=== PATIENT | female | born 1960 | race American Indian/Alaskan Native ===

== ENCOUNTER 2019-11-08 12:18 | Emergency (ER) | payer SELFPAY ==
[2019-11-08 12:47] VITALS: BP 150/91
--- NOTE | 2019-11-08 16:32 | Emergency Department Report ---
ED Abdominal Pain HPI - General Chief Complaint: Abdominal Pain Stated Complaint: ABD PAIN Time Seen by Provider: 11/08/19 16:27 Source: patient Mode of arrival: Ambulatory Limitations: No Limitations - History of Present Illness Initial Comments: Patient is 59 years old female with a recent diagnosis of endometrial carcinoma waiting for surgery. Patient stated that she has been followed by [facility]. Patient presented to the ER complaining of lower abdominal pain, crampy in nature, intermittent with no radiation. Patient denied any fever or chills. No nausea or vomiting. Patient stated that the characters of the pain is similar to what she has been having however the intensity is a little bit more and she has been using ibuprofen with no help. MD Complaint: abdominal pain -: days(s) Location: suprapubic Radiation: none Migration to: no migration Severity scale (0 -10): 6 Quality: cramping Consistency: intermittent Associated Symptoms: denies other symptoms Treatments Prior to Arrival: NSAIDs ED Review of Systems ROS: Stated complaint: ABD PAIN Other details as noted in HPI Comment: All other systems reviewed and negative Constitutional: denies: chills, fever Respiratory: denies: cough, shortness of breath, SOB with exertion Cardiovascular: denies: chest pain Gastrointestinal: abdominal pain. denies: nausea, vomiting, diarrhea, constipation, hematemesis, melena, hematochezia Musculoskeletal: denies: back pain Neurological: denies: weakness ED Past Medical Hx - Past Medical History Previous Medical History?: No - Surgical History Past Surgical History?: No ED Physical Exam - General Limitations: No Limitations General appearance: alert, in no apparent distress - Head Head exam: Present: atraumatic, normocephalic, normal inspection - Eye Eye exam: Present: normal appearance - ENT ENT exam: Present: normal exam, normal orophraynx, mucous membranes moist - Neck Neck exam: Present: normal inspection, full ROM. Absent: tenderness, meningismus - Respiratory Respiratory exam: Present: normal lung sounds bilaterally - Cardiovascular Cardiovascular Exam: Present: regular rate, normal rhythm, normal heart sounds - GI/Abdominal GI/Abdominal exam: Present: soft, normal bowel sounds. Absent: distended, tenderness, guarding, rebound, rigid, organomegaly, bruit, pulsatile mass, hernia - Extremities Exam Extremities exam: Present: normal inspection, full ROM, normal capillary refill. Absent: tenderness - Back Exam Back exam: Present: normal inspection, full ROM. Absent: CVA tenderness (R), CVA tenderness (L) - Neurological Exam Neurological exam: Present: alert, oriented X3, CN II-XII intact, normal gait, reflexes normal. Absent: motor sensory deficit - Psychiatric Psychiatric exam: Present: normal mood - Skin Skin exam: Present: warm, intact, normal color ED Course Vital Signs 11/08/19 12:44 Temperature 98.1 F Pulse Rate 85 Respiratory 18 Rate Blood Pressure 150/91 O2 Sat by Pulse 99 Oximetry ED Medical Decision Making - Medical Decision Making Patient is 59 years old female with a recent diagnosis of endometrial carcinoma waiting for surgery. Patient stated that she has been followed by [facility]. Patient presented to the ER complaining of lower abdominal pain, crampy in nature, intermittent with no radiation. Patient denied any fever or chills. No nausea or vomiting. Patient stated that the characters of the pain is similar to what she has been having however the intensity is a little bit more and she has been using ibuprofen with no help. Patient refused labs and imaging and stated that this is similar to her pain and she just wants something to help with the pain until she see her radiation therapy technician. I discussed with the patient that if there is any complication can be picked up with blood work and CAT scan but she stated that she just wanted the pain medicine and she will follow-up with her gynecology as scheduled. Patient given prescription for [place] and Zofran and advised to return to the ER she develop any new symptoms. Critical care attestation.: If time is entered above; I have spent that time in minutes in the direct care of this critically ill patient, excluding procedure time. ED Disposition Clinical Impression: Abdominal pain, Endometrial carcinoma Disposition: DC- TO HOME OR SELFCARE Is pt being admited?: No Condition: Stable Instructions: Abdominal Pain (ED) Referrals: PRIMARY CARE, [Referring] - 3-5 Days
== END 2019-11-08 16:50 | disposition home or self-care (01) ==
LOC: ED 12:18
DX: C54.1 Malignant neoplasm of endometrium (principal); R10.30 Lower abdominal pain, unspecified; Z79.899 Other long term (current) drug therapy
CPT/HCPCS: 99281